=== PATIENT | female | born 1980 | race Caucasian/White ===

== ENCOUNTER 2020-10-27 15:28 | Emergency (ER) | payer OTHER ==
[~2020-10-27] VITALS: Ht 172.7 cm; Wt 99.8 kg
== END 2020-10-27 17:00 | disposition home or self-care (01) ==
LOC: ER 15:28
DX: S60.221A Contusion of right hand, initial encounter (principal); W21.07XA Struck by softball, initial encounter; Y93.64 Activity, baseball
CPT/HCPCS: 29130; 73130; 96372-59; 99283-25; J1885